=== PATIENT | male | born 1985 | race African-American/Black ===

== ENCOUNTER 2019-01-09 14:19 | Inpatient (IN) | payer OTHER ==
[2019-01-09 16:54] VITALS: BMI 22.1
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
[2019-01-09] MEDS ORDERED: MAG HYDROX/AL HYDROX/SIMETH 30 ML UNIT-DOSE CUP PO PRN (17:48)
[2019-01-09] MEDS ORDERED: MELATONIN 5 MG TABLETS PO PRN (17:48)
[2019-01-09] MEDS ORDERED: MENTHOL/PHENOL 1 EACH UD MM PRN (17:48)
[2019-01-09] MEDS ORDERED: hydrOXYzine PAMOATE 25 MG CAPSULE (FP) PO PRN (17:48)
[2019-01-09] MEDS ORDERED: MAGNESIUM CITRATE 300 ML BOTTLE PO PRN (17:48)
[2019-01-09] MEDS ORDERED: BISMUTH SUBSALICYLATE 524 MG/30 ML UD PO PRN (17:48)
[2019-01-09] MEDS ORDERED: IBUPROFEN 400 MG TABLET (FP) PO PRN (17:48)
[2019-01-09] MEDS ORDERED: diazePAM 5 MG TABLET PO PRN (17:48)
[2019-01-09] MEDS ORDERED: ACETAMINOPHEN 325 MG TABLET (FP) PO PRN ×2 (17:48)
[2019-01-09] MEDS ORDERED: NICOTINE POLACRILEX 2 MG GUM BUC PRN (17:48)
[2019-01-09] MEDS ORDERED: MAGNESIUM HYDROX 2400MG/30ML ORAL SUSPENSION 30 ML CUP PO PRN (17:48)
[2019-01-09] MEDS ORDERED: DIVALPROEX SODIUM 500 MG TABLET E.C. PO ONE (22:00)
[2019-01-09] MEDS ORDERED: risperiDONE 1 MG TABLET (FP) PO ONE (22:00)
[2019-01-09] MEDS: THIAMINE HCL 100 MG TABLET (FP) PO SCH (22:11)
[2019-01-09] MEDS: diazePAM 5 MG TABLET PO SCH (22:11)
[2019-01-10] MEDS: diazePAM 5 MG TABLET PO SCH ×3 (05:55→22:30)
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
[2019-01-10 09:55] LABS: HEMATOCRIT 39.9 % (35.4-49); HEMOGLOBIN 12.6 GM/dL (11.7-16.9); MCH 25.1 pg (25.7-33.7); MCHC 31.5 g/dl (32.0-35.9); MEAN CELL VOLUME 79.8 fl (80-96); MEAN PLT VOLUME 7.5 fl (7.5-11.1); PLATELET COUNT 285 K/MM3 (134-434); RDW 14.8 % (11.9-15.9); WHITE BLOOD COUNT 5.1 K/mm3 (4.0-10.0)
[2019-01-10 09:56] LABS: ALBUMIN 3.8 g/dl (3.4-5.0); ALK PHOS 61 U/L (45-117); ANION GAP 6 MMOL/L (8-16); BILIRUBIN,TOTAL 0.4 mg/dL (0.2-1); BLOOD UREA NITROGEN 12 mg/dL (7-18); CALCIUM 9.8 mg/dL (8.5-10.1); CHLORIDE 97 mmol/L (98-107); CO2 32 mmol/L (21-32); CREATININE 0.9 mg/dL (0.55-1.3); GLUCOSE,RANDOM 121 mg/dL (74-106); POTASSIUM 4.4 mmol/L (3.5-5.1); SGOT/AST 31 U/L (15-37); SGPT/ALT 22 U/L (13-61); SODIUM 135 mmol/L (136-145); TOT PROT 8.3 g/dl (6.4-8.2)
--- NOTE | 2019-01-10 10:11 | PN ---
S CIWA - CIWA Score Nausea/Vomitin-No Nausea/No Vomiting Muscle Tremors: 3 Anxiety: 2 Agitation: 3 Paroxysmal Sweats: 2 Orientation: 0-Oriented Tacttile Disturbances: 0-None Auditory Disturbances: 0-None Visual Disturbances: 0-None Headache: 0-None Present CIWA-Ar Total Score: 10 S Progress Note (SOAP) Subjective: sweats shakes interrupted sleep body aches Objective: 01/10/19 10:10 Vital Signs Temperature 97.3 F L 01/10/19 09:16 Pulse Rate 60 01/10/19 09:16 Respiratory Rate 18 01/10/19 09:16 Blood Pressure 102/52 L 01/10/19 09:16 O2 Sat by Pulse Oximetry (%) Laboratory Tests 01/10/19 01/10/19 06:00 06:00 WBC 5.1 RBC 5.00 Hgb 12.6 Hct 39.9 MCV 79.8 L MCH 25.1 L MCHC 31.5 L RDW 14.8 Plt Count 285 D MPV 7.5 Sodium 135 L Potassium 4.4 Chloride 97 L Carbon Dioxide 32 Anion Gap 6 L BUN 12 Creatinine 0.9 Creat Clearance w eGFR 97.18 Random Glucose 121 H Calcium 9.8 Total Bilirubin 0.4 AST 31 ALT 22 Alkaline Phosphatase 61 Total Protein 8.3 H Albumin 3.8 aaox3 ambulating no acute distress Assessment: 01/10/19 10:11 withdrawal sx Plan: continue detox increase fluids
[2019-01-10] MEDS: PRENATAL VITAMINS W/ FOLIC ACID TABLET (FP) PO SCH (10:24)
[2019-01-10] MEDS: risperiDONE 1 MG TABLET (FP) PO SCH ×2 (11:12→22:30)
[2019-01-10] MEDS: DIVALPROEX SODIUM 500 MG TABLET E.C. PO SCH ×2 (11:12→22:30)
[2019-01-10] MEDS: THIAMINE HCL 100 MG TABLET (FP) PO SCH (22:30)
--- NOTE | 2019-01-11 09:40 | PN ---
S CIWA - CIWA Score Nausea/Vomitin-No Nausea/No Vomiting Muscle Tremors: 1-None Visible, but [place] Anxiety: 1-Mildly Anxious Agitation: 3 Paroxysmal Sweats: 3 Orientation: 0-Oriented Tacttile Disturbances: 0-None Auditory Disturbances: 0-None Visual Disturbances: 0-None Headache: 0-None Present CIWA-Ar Total Score: 8 BHS Progress Note (SOAP) Subjective: sweats tired Objective: 01/11/19 09:40 Vital Signs Temperature 98.8 F 01/11/19 09:13 Pulse Rate 66 01/11/19 09:13 Respiratory Rate 18 01/11/19 09:13 Blood Pressure 118/66 01/11/19 09:13 O2 Sat by Pulse Oximetry (%) Laboratory Tests 01/10/19 01/10/19 01/10/19 06:00 06:00 06:00 WBC 5.1 RBC 5.00 Hgb 12.6 Hct 39.9 MCV 79.8 L MCH 25.1 L MCHC 31.5 L RDW 14.8 Plt Count 285 D MPV 7.5 Sodium 135 L Potassium 4.4 Chloride 97 L Carbon Dioxide 32 Anion Gap 6 L BUN 12 Creatinine 0.9 Creat Clearance w eGFR 97.18 Random Glucose 121 H Calcium 9.8 Total Bilirubin 0.4 AST 31 ALT 22 Alkaline Phosphatase 61 Total Protein 8.3 H Albumin 3.8 RPR Titer Nonreactive aaox3 ambulating no acute distress Assessment: 01/11/19 09:40 mild withdrawal sx Plan: continue detox increase fluids d/c in am
[2019-01-11] MEDS: diazePAM 5 MG TABLET PO SCH ×2 (10:30→22:17)
[2019-01-11] MEDS: PRENATAL VITAMINS W/ FOLIC ACID TABLET (FP) PO SCH (10:30)
[2019-01-11] MEDS: risperiDONE 1 MG TABLET (FP) PO SCH ×2 (10:30→22:17)
[2019-01-11] MEDS: DIVALPROEX SODIUM 500 MG TABLET E.C. PO SCH ×2 (10:30→22:17)
[2019-01-11] MEDS: THIAMINE HCL 100 MG TABLET (FP) PO SCH (22:18)
[2019-01-12] MEDS ORDERED: diazePAM 5 MG TABLET PO SCH (06:00)
[2019-01-12 09:21] VITALS: BP 130/67; PULSE 93; TEMP 97.9
--- NOTE | 2019-01-12 09:29 | DS ---
[facility] Detox Discharge Summary Admission Date: 01/09/19 Discharge Date: 01/12/19 - History Present History: Alcohol Dependence, Cannabis Dependence, Cocaine Dependence - Physical Exam Results Vital Signs: Vital Signs Temperature 97.9 F 01/12/19 09:20 Pulse Rate 93 H 01/12/19 09:20 Respiratory Rate 18 01/12/19 09:20 Blood Pressure 130/67 01/12/19 09:20 O2 Sat by Pulse Oximetry (%) - Treatment Hospital Course: Detox Protocol Followed, Detoxed Safely, Responded well, Discharged Condition Good, Rehab Referral Accepted - Medication Discharge Medications: Ambulatory Orders Divalproex [Depakote -] 500 mg PO BID 01/09/19 Risperidone [Risperdal] 1 mg PO BID 01/09/19 - Diagnosis (1) Alcohol dependence with uncomplicated withdrawal Current Visit: Yes Status: Chronic (2) Cannabis dependence Current Visit: Yes Status: Chronic (3) Cocaine dependence Current Visit: Yes Status: Chronic Qualifiers: Substance use status: uncomplicated Qualified Code(s): F14.20 - Cocaine dependence, uncomplicated (4) Substance-induced anxiety disorder Current Visit: Yes Status: Acute (5) Nicotine dependence Current Visit: Yes Status: Chronic Qualifiers: Nicotine product type: cigarettes Substance use status: uncomplicated Qualified Code(s): F17.210 - Nicotine dependence, cigarettes, uncomplicated (6) Bipolar I disorder with mood-congruent psychotic features Current Visit: No Status: Acute (7) Cocaine dependence, uncomplicated Current Visit: No Status: Acute (8) Drug-induced mood disorder Current Visit: No Status: Acute (9) Bipolar disorder Current Visit: No Status: Chronic Qualifiers: Current episode severity: mild - AMA Did Patient Leave Against Medical Advice: No (referred to [facility] )
[2019-01-12] MEDS: DIVALPROEX SODIUM 500 MG TABLET E.C. PO SCH (10:10)
[2019-01-12] MEDS: risperiDONE 1 MG TABLET (FP) PO SCH (10:10)
[2019-01-12] MEDS: PRENATAL VITAMINS W/ FOLIC ACID TABLET (FP) PO SCH (10:11)
== END 2019-01-12 11:15 | disposition home or self-care (01) | DRG 773 ==
LOC: YASAS 14:19 → Y6N 18:27
PROVIDERS: ADMIT Surgery; ATTEND Surgery
PROC: HZ2ZZZZ Detoxification Services for Substance Abuse Treatment (ICD-10-PCS; principal; 2019-01-09)
DX: F10.230 Alcohol dependence with withdrawal, uncomplicated (principal); F14.20 Cocaine dependence, uncomplicated; F12.20 Cannabis dependence, uncomplicated; F11.10 Opioid abuse, uncomplicated; F17.210 Nicotine dependence, cigarettes, uncomplicated; F19.24 Other psychoactive substance dependence with psychoactive substance-induced mood disorder; F19.280 Other psychoactive substance dependence with psychoactive substance-induced anxiety disorder; F31.2 Bipolar disorder, current episode manic severe with psychotic features; Z91.5 Personal history of self-harm
CPT/HCPCS: 36415; 80053; 85027; 86593; J2794

== ENCOUNTER 2020-07-01 12:11 | Inpatient (IN) | payer OTHER ==
--- NOTE | 2020-07-01 12:40 | BHS.RME ---
Substance Use & Tx History - Substance Use History Alcohol Substance amount: 1 pint vodka Frequency of use: Daily Substance route: Oral Date of Last Use: 06/30/20 (started age 12) Marijuana/Hashish Substance amount: 1-2 joints Frequency of use: Daily Substance route: Smoking Date of Last Use: 07/01/20 (started age 12) Methamphetamine Substance amount: crystal meth 1 gram Frequency of use: Daily Substance route: Smoking Date of Last Use: 06/28/20 (started age 17) Physical/Psych/Mental Status - Behavior General Behavior: Increased activity (restlessness, agitation) Eye Contact: Normal - Cooperativeness Cooperativeness: Cooperative - Thinking Thought Processes: Tight, Logical, Goal Directed - Physical Health Problems Is patient presently having any pain?: No Does patient presently have any injuries (include location): No Does patient currently have a fever: No Is patient : No CIWA Nausea/Vomitin-Mild Nausea/No Vomiting Muscle Tremors: 4-Moderate,w/Arms Extend Anxiety: 2 Agitation: 2 Paroxysmal Sweats: No Perspiration Orientation: 0-Oriented Tacttile Disturbances: 0-None Auditory Disturbances: 0-None Visual Disturbances: 0-None Headache: 0-None Present CIWA-Ar Total Score: 9
[2020-07-01 13:07] VITALS: BMI 21.2
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
[2020-07-01] MEDS ORDERED: ACETAMINOPHEN 325 MG TABLET (FP) PO PRN ×2 (13:30)
[2020-07-01] MEDS ORDERED: ONDANSETRON *ODT* 4 MG TABLET SL PRN (13:30)
[2020-07-01] MEDS ORDERED: chlordiazePOXIDE HCL 25 MG CAPSULE PO PRN (13:30)
[2020-07-01] MEDS ORDERED: MENTHOL/PHENOL 1 EACH UD MM PRN (13:30)
[2020-07-01] MEDS ORDERED: MAGNESIUM HYDROX 2400MG/30ML ORAL SUSPENSION 30 ML CUP PO PRN (13:30)
[2020-07-01] MEDS ORDERED: BISMUTH SUBSALICYLATE 262 MG/15 ML BTL PO PRN (13:30)
[2020-07-01] MEDS ORDERED: MAGNESIUM CITRATE 300 ML BOTTLE PO PRN (13:30)
[2020-07-01] MEDS ORDERED: NICOTINE POLACRILEX 2 MG GUM BUC PRN (13:30)
[2020-07-01] MEDS ORDERED: MAG HYDROX/AL HYDROX/SIMETH 30 ML UNIT-DOSE CUP PO PRN (13:30)
[2020-07-01] MEDS ORDERED: IBUPROFEN 400 MG TABLET (FP) PO PRN (13:30)
[2020-07-01] MEDS ORDERED: METHOCARBAMOL 500 MG TABLET PO PRN (13:30)
[2020-07-01] MEDS ORDERED: hydrOXYzine PAMOATE 25 MG CAPSULE (FP) PO SCH (14:00)
[2020-07-01] MEDS: NICOTINE 21 MG/24 HOURS TOPICAL PATCH TD SCH (14:16)
[2020-07-01] MEDS ORDERED: hydrOXYzine PAMOATE 25 MG CAPSULE (FP) PO PRN (14:49)
[2020-07-01 14:59] LABS: HEMATOCRIT 36.5 % (35.4-49); HEMOGLOBIN 11.5 GM/dL (11.7-16.9); MCH 24.3 pg (25.7-33.7); MCHC 31.5 g/dl (32.0-35.9); MEAN PLT VOLUME 7.8 fl (7.5-11.1); PLATELET COUNT 304 K/MM3 (134-434); RBC 4.74 M/mm3 (4.00-5.60); RDW 14.8 % (11.9-15.9); WHITE BLOOD COUNT 5.9 K/mm3 (4.0-10.0)
[2020-07-01 15:16] LABS: ALBUMIN 3.6 g/dl (3.4-5.0); BLOOD UREA NITROGEN 18.5 mg/dL (7-18); CALCIUM 9.6 mg/dL (8.5-10.1); POTASSIUM 4.3 mmol/L (3.5-5.1)
[2020-07-01 15:19] LABS: BILIRUBIN,TOTAL 0.4 mg/dL (0.2-1); CREATININE 0.9 mg/dL (0.55-1.3); TOT PROT 7.3 g/dl (6.4-8.2)
[2020-07-01] MEDS: chlordiazePOXIDE HCL 25 MG CAPSULE PO SCH ×2 (17:25→22:44)
[2020-07-01] MEDS: MELATONIN 5 MG TABLETS PO SCH (22:44)
[2020-07-01] MEDS: THIAMINE HCL 100 MG TABLET (FP) PO SCH (22:44)
[2020-07-02] MEDS: chlordiazePOXIDE HCL 25 MG CAPSULE PO SCH ×4 (05:26→22:20)
[2020-07-02] MEDS: NICOTINE 21 MG/24 HOURS TOPICAL PATCH TD SCH (10:32)
[2020-07-02] MEDS: PRENATAL VITAMINS W/ FOLIC ACID TABLET (FP) PO SCH (10:32)
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
--- NOTE | 2020-07-02 12:16 | PN ---
[facility] CIWA - CIWA Score Nausea/Vomitin-No Nausea/No Vomiting Muscle Tremors: 2 Anxiety: 1-Mildly Anxious Agitation: 2 Paroxysmal Sweats: 2 Orientation: 0-Oriented Tacttile Disturbances: 0-None Auditory Disturbances: 0-None Visual Disturbances: 0-None Headache: 0-None Present CIWA-Ar Total Score: 7 BHS Progress Note (SOAP) Subjective: sweats headache interrupted sleep body aches Objective: 07/02/20 12:15 Vital Signs Temperature 97.7 F 07/02/20 08:15 Pulse Rate 48 L 07/02/20 08:15 Respiratory Rate 16 07/02/20 08:15 Blood Pressure 122/53 L 07/02/20 08:15 O2 Sat by Pulse Oximetry (%) 98 07/02/20 08:15 Laboratory Tests 07/01/20 07/01/20 07/01/20 12:15 12:15 12:15 WBC 5.9 RBC 4.74 Hgb 11.5 L Hct 36.5 MCV 77.0 L MCH 24.3 L MCHC 31.5 L RDW 14.8 Plt Count 304 MPV 7.8 Sodium 138 Potassium 4.3 Chloride 103 Carbon Dioxide 29 Anion Gap 6 L BUN 18.5 H Creatinine 0.9 Est GFR (CKD-EPI)AfAm 128.70 Est GFR (CKD-EPI)NonAf 111.04 Random Glucose 83 Calcium 9.6 Total Bilirubin 0.4 AST 27 ALT 22 Alkaline Phosphatase 68 Total Protein 7.3 Albumin 3.6 Valproic Acid Syphilis Serology HIV Ag/Ab Combo Qual Negative 07/01/20 07/01/20 12:15 15:15 WBC RBC Hgb Hct MCV MCH MCHC RDW Plt Count MPV Sodium Potassium Chloride Carbon Dioxide Anion Gap BUN Creatinine Est GFR (CKD-EPI)AfAm Est GFR (CKD-EPI)NonAf Random Glucose Calcium Total Bilirubin AST ALT Alkaline Phosphatase Total Protein Albumin Valproic Acid 3.1 L Syphilis Serology Non-reactive HIV Ag/Ab Combo Qual labs noted aaox3 ambulating no acute distress Assessment: 07/02/20 12:16 withdrawals Plan: continue detox
[2020-07-02] MEDS: THIAMINE HCL 100 MG TABLET (FP) PO SCH (22:20)
[2020-07-02] MEDS: MELATONIN 5 MG TABLETS PO SCH (22:51)
[2020-07-03] MEDS: chlordiazePOXIDE HCL 25 MG CAPSULE PO SCH ×3 (05:25→18:29)
[2020-07-03] MEDS: NICOTINE 21 MG/24 HOURS TOPICAL PATCH TD SCH (11:41)
[2020-07-03] MEDS: PRENATAL VITAMINS W/ FOLIC ACID TABLET (FP) PO SCH (11:42)
--- NOTE | 2020-07-03 11:48 | PN ---
S CIWA - CIWA Score Nausea/Vomitin-No Nausea/No Vomiting Muscle Tremors: 2 Anxiety: 1-Mildly Anxious Agitation: 2 Paroxysmal Sweats: 1-Minimal Palms Moist Orientation: 0-Oriented Tacttile Disturbances: 0-None Auditory Disturbances: 0-None Visual Disturbances: 0-None Headache: 0-None Present CIWA-Ar Total Score: 6 BHS Progress Note (SOAP) Subjective: sweats interrupted sleep body aches Objective: 07/03/20 11:48 Vital Signs Temperature 97.8 F 07/03/20 08:43 Pulse Rate 54 L 07/03/20 08:43 Respiratory Rate 18 07/03/20 08:43 Blood Pressure 101/55 L 07/03/20 08:43 O2 Sat by Pulse Oximetry (%) 99 07/03/20 05:19 Laboratory Tests 07/01/20 07/01/20 07/01/20 12:15 12:15 12:15 WBC 5.9 RBC 4.74 Hgb 11.5 L Hct 36.5 MCV 77.0 L MCH 24.3 L MCHC 31.5 L RDW 14.8 Plt Count 304 MPV 7.8 Sodium 138 Potassium 4.3 Chloride 103 Carbon Dioxide 29 Anion Gap 6 L BUN 18.5 H Creatinine 0.9 Est GFR (CKD-EPI)AfAm 128.70 Est GFR (CKD-EPI)NonAf 111.04 Random Glucose 83 Calcium 9.6 Total Bilirubin 0.4 AST 27 ALT 22 Alkaline Phosphatase 68 Total Protein 7.3 Albumin 3.6 Valproic Acid Syphilis Serology HIV Ag/Ab Combo Qual Negative 07/01/20 07/01/20 12:15 15:15 WBC RBC Hgb Hct MCV MCH MCHC RDW Plt Count MPV Sodium Potassium Chloride Carbon Dioxide Anion Gap BUN Creatinine Est GFR (CKD-EPI)AfAm Est GFR (CKD-EPI)NonAf Random Glucose Calcium Total Bilirubin AST ALT Alkaline Phosphatase Total Protein Albumin Valproic Acid 3.1 L Syphilis Serology Non-reactive HIV Ag/Ab Combo Qual labs noted [id number] ambulating no acute distress Assessment: 07/03/20 11:48 withdrawal sx Plan: continue detox increase fluids
--- NOTE | 2020-07-03 17:41 | PN ---
[facility] CIWA - CIWA Score Nausea/Vomitin-No Nausea/No Vomiting Muscle Tremors: 1-None Visible, but [place] Anxiety: 1-Mildly Anxious Agitation: 0-Normal Activity Paroxysmal Sweats: No Perspiration Orientation: 0-Oriented Tacttile Disturbances: 0-None Auditory Disturbances: 0-None Visual Disturbances: 0-None Headache: 0-None Present CIWA-Ar Total Score: 2
--- NOTE | 2020-07-03 17:44 | DS ---
[facility] Detox Discharge Summary Admission Date: 07/01/20 Discharge Date: 07/03/20 - History Present History: Alcohol Dependence, Cannabis Dependence, Cocaine Dependence Additional Comments: Patient states he feels much better and has few withdrawal symptoms: CIWA =2 now - Physical Exam Results Vital Signs: Vital Signs Temperature 98.0 F 07/03/20 12:21 Pulse Rate 62 07/03/20 12:21 Respiratory Rate 18 07/03/20 12:21 Blood Pressure 104/52 L 07/03/20 12:21 O2 Sat by Pulse Oximetry (%) 96 07/03/20 12:21 Pertinent Admission Physical Exam Findings: Patient alert and oriented X 3 Cor: S1 S2 Lungs: Clear to Auscultation Ext: No edema, FROM, Normal pulses Neuro: No focal deficits. - Treatment Hospital Course: Detox Protocol Followed, Detoxed Safely, Responded well, Discharged Condition Good - Medication Discharge Medications: Ambulatory Orders Divalproex [Depakote -] 500 mg PO BID 01/09/19 Risperidone [Risperdal] 2 mg PO BID 01/09/19 - Diagnosis (1) Alcohol dependence with uncomplicated withdrawal Current Visit: Yes Status: Acute (2) Nicotine dependence Current Visit: Yes Status: Acute Qualifiers: Nicotine product type: cigarettes Substance use status: uncomplicated Qualified Code(s): F17.210 - Nicotine dependence, cigarettes, uncomplicated (3) Schizophrenia Current Visit: Yes Status: Acute (4) Cannabis dependence Current Visit: Yes Status: Chronic (5) Bipolar I disorder with mood-congruent psychotic features Current Visit: Yes Status: Acute (6) Cocaine dependence, uncomplicated Current Visit: Yes Status: Acute - AMA Did Patient Leave Against Medical Advice: No (Patient will follow up outpatient in [facility])
[2020-07-03 18:48] VITALS: BP 113/71; PULSE 87; TEMP 97.3
[2020-07-04] MEDS ORDERED: chlordiazePOXIDE HCL 10 MG CAPSULE PO PRN
[2020-07-04] MEDS ORDERED: chlordiazePOXIDE HCL 10 MG CAPSULE PO SCH (05:00)
[2020-07-05] MEDS ORDERED: chlordiazePOXIDE HCL 10 MG CAPSULE PO SCH (05:00)
[2020-07-06] MEDS ORDERED: chlordiazePOXIDE HCL 10 MG CAPSULE PO ONE (05:00)
== END 2020-07-03 18:40 | disposition home or self-care (01) | DRG 774 ==
LOC: YASAS 12:11 → Y6N 13:45
PROVIDERS: ADMIT Allergy & Immunology; ATTEND Allergy & Immunology
PROC: HZ2ZZZZ Detoxification Services for Substance Abuse Treatment (ICD-10-PCS; principal; 2020-07-01)
DX: F10.230 Alcohol dependence with withdrawal, uncomplicated (principal); F14.20 Cocaine dependence, uncomplicated; F15.20 Other stimulant dependence, uncomplicated; F12.20 Cannabis dependence, uncomplicated; F17.210 Nicotine dependence, cigarettes, uncomplicated; F31.2 Bipolar disorder, current episode manic severe with psychotic features; F20.9 Schizophrenia, unspecified; Z87.828 Personal history of other (healed) physical injury and trauma; Z56.0 Unemployment, unspecified; Z59.0 Homelessness
CPT/HCPCS: 36415; 80053; 80164; 85027; 86780; 87389; U0003